=== PATIENT | female | born 1940 | race Caucasian/White ===

== ENCOUNTER 2019-02-08 10:08 | Inpatient (IN) ==
[2019-02-08] MEDS ORDERED: ONDANSETRON ODT 4 MG TABLET PO STA (10:32)
[2019-02-08] MEDS ORDERED: PANTOPRAZOLE 40 MG VIAL IV STA (10:32)
[2019-02-08] MEDS ORDERED: SODIUM CHLORIDE 0.9% 1,000 ML IV STA (10:32)
[2019-02-08 10:38] LABS: Basophils % 0.3 % (0.0-0.8); Eosinophils % 0.3 % (0.00-10.9); Hematocrit 42.7 VOL% (35.7-47.0); Hemoglobin 13.9 GM/DL (12.0-16.0); Immature Granulocytes % 0.5 %; Immature Granulocytes Absolute 0.06 #; Lymphocytes # 1.8 10*3/uL (1.4-4.0); Lymphocytes % 14.7 % (21.3-54.2); Mean Corpuscular HGB Conc 32.6 GM/DL (32-36); Mean Corpuscular Volume 95.7 FL (87-102); Mean Platelet Volume 9.7 FL (9.6-12.0); Neutrophils % 77.2 % (38.7-73.9); Platelet Count 253 T/CUMM (130-400); Red Blood Count 4.46 MC/CUMM (3.8-5.5); Red Cell Distribution Width 11.9 % (9.3-17.3); White Blood Count 11.9 T/CUMM (4-12)
[2019-02-08 10:48] LABS: Apearance,Urine Slightly Hazy (Clear); Bacteria,Urine Many /HPF (Few); Bilirubin,Urine Negative (Negative); Blood, Urine Negative (Negative); Glucose,Urine (UA) Negative (Negative); Ketones,Urine Negative (Negative); Mucus,Urine Occasional /LPF (Occasional); Nitrite,Urine Positive (Negative); Protein,Urine 30 MG/DL; RBC,Urine 2 /HPF (0-4); Squamous Epithelial Cell,Urine Occasional /HPF (0-10); Urine Color Dark Yellow (Yellow); Urine Specific Gravity 1.021 (1.001-1.035); WBC,Urine 32 /HPF (0-6)
[2019-02-08 10:56] LABS: Albumin 2.7 G/DL (3.4-5.0); Bilirubin,Total 0.6 MG/DL (0.2-1.0); Calcium 9.4 MG/DL (8.5-10.1); Osmolality,Calculated 271.1 MOS/KG (273-304); Total Protein 7.6 G/DL (6.4-8.3)
[2019-02-08] MEDS ORDERED: PIPERACILLIN/TAZOBACTAM 3,375 MG in SODIUM CHLORIDE 0.9% 100 ML IV STA (11:16)
[2019-02-08] MEDS ORDERED: PROMETHAZINE 25 MG/1 ML VIAL IM STA (11:16)
[2019-02-08] MEDS ORDERED: HYDROmorphone 2 MG/1 ML VIAL IV STA (11:16)
[2019-02-08] MEDS ORDERED: KETOROLAC 30 MG/1 ML VIAL IV STA (11:17)
[2019-02-08] MEDS ORDERED: KETOROLAC 30 MG/1 ML VIAL ONE (11:18)
[2019-02-08] MEDS ORDERED: ACETAMINOPHEN 325 MG TABLET PO PRN (11:30)
[2019-02-08] MEDS ORDERED: ONDANSETRON 4 MG/2 ML VIAL IV PRN (11:30)
[2019-02-08] MEDS ORDERED: HYDROCORTISONE 25 MG SUPP RECTAL PRN (11:34)
[2019-02-08] MEDS ORDERED: cloNIDine 0.1 MG TABLET PO PRN (11:34)
[2019-02-08] MEDS ORDERED: ALBUTEROL 2.5 MG/3 ML NEB RESP TX PRN (11:34)
[2019-02-08] MEDS ORDERED: diphenhydrAMINE 25 MG/10 ML UDCUP PO PRN (11:34)
[2019-02-08] MEDS: hydrALAZINE 25 MG TABLET PO SCH ×3 (13:24→20:07)
[2019-02-08] MEDS: SODIUM CHLORIDE 0.45% 1,000 ML IV SCH (13:25)
[2019-02-08] MEDS: POLYVINYL ALCOHOL 1.4% OPH SOLN 15 ML BOTTLE BOTH EYES SCH ×2 (16:17→20:07)
[2019-02-08] MEDS: TAMSULOSIN 0.4 MG CAPSULE PO SCH (20:06)
[2019-02-08] MEDS: CALCIUM (CARBONATE)/VITAMIN D 250 MG-125 UNIT TABLET PO SCH (20:06)
[2019-02-08] MEDS: ALPRAZolam 0.5 MG TABLET PO SCH (20:06)
[2019-02-08] MEDS: PROPRANOLOL 10 MG TABLET PO SCH (20:06)
[2019-02-08] MEDS: OLANZapine 5 MG TABLET PO SCH (20:06)
[2019-02-08] MEDS: PANTOPRAZOLE 40 MG TABLET PO SCH (20:06)
[2019-02-08] MEDS: LACTULOSE 20 GM/30 ML UDCUP PO SCH (20:06)
[2019-02-08] MEDS: PIPERACILLIN/TAZOBACTAM 3,375 MG in SODIUM CHLORIDE 0.9% 100 ML IV SCH (20:07)
[2019-02-09] MEDS: PIPERACILLIN/TAZOBACTAM 3,375 MG in SODIUM CHLORIDE 0.9% 100 ML IV SCH ×3 (04:04→21:20)
[2019-02-09 04:54] LABS: Basophils % 0.2 % (0.0-0.8); Eosinophils % 0.2 % (0.00-10.9); Hematocrit 38.3 VOL% (35.7-47.0); Hemoglobin 12.6 GM/DL (12.0-16.0); Immature Granulocytes % 0.5 %; Immature Granulocytes Absolute 0.07 #; Lymphocytes # 1.6 10*3/uL (1.4-4.0); Lymphocytes % 10.8 % (21.3-54.2); Mean Corpuscular HGB Conc 32.9 GM/DL (32-36); Mean Corpuscular Volume 94.8 FL (87-102); Mean Platelet Volume 9.9 FL (9.6-12.0); Monocytes % 10.4 % (1.7-12.7); Neutrophils % 77.9 % (38.7-73.9); Platelet Count 219 T/CUMM (130-400); Red Blood Count 4.04 MC/CUMM (3.8-5.5); Red Cell Distribution Width 11.9 % (9.3-17.3); White Blood Count 14.4 T/CUMM (4-12)
[2019-02-09 05:31] LABS: Albumin 2.3 G/DL (3.4-5.0); Bilirubin,Total 0.9 MG/DL (0.2-1.0); Calcium 8.7 MG/DL (8.5-10.1); Osmolality,Calculated 277.7 MOS/KG (273-304)
[2019-02-09] MEDS ORDERED: INDOCYANINE GREEN 25 MG VIAL IV ONE (06:00)
[2019-02-09] MEDS ORDERED: TISSUE ADHESIVE 1 EACH APPLICATOR TOP ONE ×2 (06:39→09:01)
[2019-02-09] MEDS ORDERED: BUPIVACAINE MPF 0.25% 30 ML VIAL ONE (06:39)
[2019-02-09] MEDS ORDERED: LIDOCAINE 1%/EPI INJ 20 ML VIAL ONE (06:39)
[2019-02-09] MEDS: PANTOPRAZOLE 40 MG TABLET PO SCH ×2 (06:43→21:24)
[2019-02-09] MEDS ORDERED: ALBUTEROL/IPRATROPIUM 3 ML NEB RESP TX ONE (07:03)
[2019-02-09] MEDS ORDERED: SEVOFLURANE 1 UNIT/15 MINUTE INH ONE (09:24)
[2019-02-09] MEDS ORDERED: LIDOCAINE 2% 5 ML VIAL ONE (09:24)
[2019-02-09] MEDS ORDERED: PROPOFOL 200 MG/20 ML VIAL IV ONE (09:24)
[2019-02-09] MEDS ORDERED: PHENYLEPHRINE 10 MG/1 ML VIAL IV ONE (09:25)
[2019-02-09] MEDS ORDERED: GLYCOPYRROLATE 0.4 MG/2 ML VIAL ONE (09:25)
[2019-02-09] MEDS ORDERED: fentaNYL 100 MCG/2 ML VIAL ONE (09:25)
[2019-02-09] MEDS ORDERED: DEXAMETHASONE 4 MG/1 ML VIAL ONE (09:25)
[2019-02-09] MEDS ORDERED: ONDANSETRON 4 MG/2 ML VIAL ONE (09:25)
[2019-02-09] MEDS ORDERED: KETOROLAC 30 MG/1 ML VIAL ONE (09:25)
[2019-02-09] MEDS ORDERED: ROCURONIUM 100 MG/10 ML VIAL IV ONE (09:26)
[2019-02-09] MEDS ORDERED: NEOSTIGMINE 10 MG/10 ML VIAL ONE (09:26)
[2019-02-09] MEDS: POLYVINYL ALCOHOL 1.4% OPH SOLN 15 ML BOTTLE BOTH EYES SCH ×4 (10:11→21:23)
[2019-02-09] MEDS: hydrALAZINE 25 MG TABLET PO SCH ×4 (10:11→21:24)
[2019-02-09] MEDS: busPIRone 5 MG TABLET PO SCH (11:00)
[2019-02-09] MEDS: LISINOPRIL 10 MG TABLET PO SCH (11:00)
[2019-02-09] MEDS: CALCIUM (CARBONATE)/VITAMIN D 250 MG-125 UNIT TABLET PO SCH ×2 (11:01→21:24)
[2019-02-09] MEDS: MAGNESIUM CHLORIDE 64 MG TABLET PO SCH (11:01)
[2019-02-09] MEDS: FLUTICASONE 50 MCG NASAL SPRAY 16 GM BOTTLE BOTH NARES SCH (11:01)
[2019-02-09] MEDS: FLUoxetine 20 MG CAPSULE PO SCH (11:01)
[2019-02-09] MEDS: PROPRANOLOL 10 MG TABLET PO SCH ×2 (11:01→21:24)
[2019-02-09] MEDS: ALPRAZolam 0.5 MG TABLET PO SCH ×2 (11:01→21:23)
[2019-02-09] MEDS: FUROSEMIDE 40 MG TABLET PO SCH (11:01)
[2019-02-09] MEDS: SODIUM CHLORIDE 0.45% 1,000 ML IV SCH (12:57)
[2019-02-09] MEDS: MORPHINE 4 MG/1 ML VIAL IV PRN (17:34)
[2019-02-09] MEDS: OLANZapine 5 MG TABLET PO SCH (21:23)
[2019-02-09] MEDS: TAMSULOSIN 0.4 MG CAPSULE PO SCH (21:24)
[2019-02-09] MEDS: LACTULOSE 20 GM/30 ML UDCUP PO SCH (21:27)
[2019-02-10] MEDS: PIPERACILLIN/TAZOBACTAM 3,375 MG in SODIUM CHLORIDE 0.9% 100 ML IV SCH ×3 (04:36→21:27)
[2019-02-10] MEDS: MORPHINE 4 MG/1 ML VIAL IV PRN ×2 (04:47→10:53)
[2019-02-10 05:26] LABS: Basophils % 0.1 % (0.0-0.8); Hematocrit 38.2 VOL% (35.7-47.0); Hemoglobin 12.6 GM/DL (12.0-16.0); Immature Granulocytes % 0.7 %; Lymphocytes # 1.6 10*3/uL (1.4-4.0); Lymphocytes % 10.6 % (21.3-54.2); Mean Corpuscular Volume 93.9 FL (87-102); Mean Platelet Volume 10.1 FL (9.6-12.0); Monocytes % 7.7 % (1.7-12.7); Neutrophils % 80.9 % (38.7-73.9); Platelet Count 255 T/CUMM (130-400); Red Blood Count 4.07 MC/CUMM (3.8-5.5); Red Cell Distribution Width 12.1 % (9.3-17.3); White Blood Count 14.8 T/CUMM (4-12)
[2019-02-10 05:54] LABS: Albumin 2.1 G/DL (3.4-5.0); Bilirubin,Total 1.1 MG/DL (0.2-1.0); Calcium 9.4 MG/DL (8.5-10.1)
[2019-02-10] MEDS: PANTOPRAZOLE 40 MG TABLET PO SCH ×2 (06:17→21:26)
[2019-02-10] MEDS: SODIUM CHLORIDE 0.45% 1,000 ML IV SCH ×2 (06:18→17:09)
[2019-02-10] MEDS: busPIRone 5 MG TABLET PO SCH (09:15)
[2019-02-10] MEDS: FLUoxetine 20 MG CAPSULE PO SCH (09:15)
[2019-02-10] MEDS: LISINOPRIL 10 MG TABLET PO SCH (09:15)
[2019-02-10] MEDS: PROPRANOLOL 10 MG TABLET PO SCH ×2 (09:16→21:23)
[2019-02-10] MEDS: FUROSEMIDE 40 MG TABLET PO SCH (09:16)
[2019-02-10] MEDS: hydrALAZINE 25 MG TABLET PO SCH ×4 (09:16→21:23)
[2019-02-10] MEDS: CALCIUM (CARBONATE)/VITAMIN D 250 MG-125 UNIT TABLET PO SCH ×2 (09:16→21:25)
[2019-02-10] MEDS: MAGNESIUM CHLORIDE 64 MG TABLET PO SCH (09:17)
[2019-02-10] MEDS: FLUTICASONE 50 MCG NASAL SPRAY 16 GM BOTTLE BOTH NARES SCH (09:17)
[2019-02-10] MEDS: ALPRAZolam 0.5 MG TABLET PO SCH ×2 (09:17→21:28)
[2019-02-10] MEDS: POLYVINYL ALCOHOL 1.4% OPH SOLN 15 ML BOTTLE BOTH EYES SCH ×4 (10:55→21:27)
[2019-02-10] MEDS: OLANZapine 5 MG TABLET PO SCH (21:25)
[2019-02-10] MEDS: LACTULOSE 20 GM/30 ML UDCUP PO SCH (21:26)
[2019-02-10] MEDS: TAMSULOSIN 0.4 MG CAPSULE PO SCH (21:26)
[2019-02-11] MEDS: MORPHINE 4 MG/1 ML VIAL IV PRN (01:57)
[2019-02-11] MEDS: PIPERACILLIN/TAZOBACTAM 3,375 MG in SODIUM CHLORIDE 0.9% 100 ML IV SCH ×3 (04:10→20:15)
[2019-02-11] MEDS: PANTOPRAZOLE 40 MG TABLET PO SCH ×2 (05:56→20:15)
[2019-02-11] MEDS: SODIUM CHLORIDE 0.45% 1,000 ML IV SCH (05:59)
[2019-02-11 06:07] LABS: Basophils % 0.2 % (0.0-0.8); Eosinophils # 0.1 10*3/uL (0.0-0.87); Eosinophils % 1.5 % (0.00-10.9); Hemoglobin 11.3 GM/DL (12.0-16.0); Immature Granulocytes % 1.1 %; Lymphocytes # 1.6 10*3/uL (1.4-4.0); Lymphocytes % 17.4 % (21.3-54.2); Mean Corpuscular HGB Conc 31.4 GM/DL (32-36); Mean Corpuscular Volume 98.1 FL (87-102); Mean Platelet Volume 10.3 FL (9.6-12.0); Monocytes % 9.1 % (1.7-12.7); Neutrophils % 70.7 % (38.7-73.9); Platelet Count 245 T/CUMM (130-400); Red Blood Count 3.67 MC/CUMM (3.8-5.5); Red Cell Distribution Width 12.3 % (9.3-17.3)
[2019-02-11 06:41] LABS: Albumin 1.9 G/DL (3.4-5.0); Bilirubin,Total 0.5 MG/DL (0.2-1.0); Calcium 8.5 MG/DL (8.5-10.1); Osmolality,Calculated 282.4 MOS/KG (273-304)
[2019-02-11] MEDS: LISINOPRIL 10 MG TABLET PO SCH (08:34)
[2019-02-11] MEDS: MAGNESIUM CHLORIDE 64 MG TABLET PO SCH (08:35)
[2019-02-11] MEDS: FLUoxetine 20 MG CAPSULE PO SCH (08:35)
[2019-02-11] MEDS: ALPRAZolam 0.5 MG TABLET PO SCH ×2 (08:35→20:15)
[2019-02-11] MEDS: busPIRone 5 MG TABLET PO SCH (08:35)
[2019-02-11] MEDS: hydrALAZINE 25 MG TABLET PO SCH ×4 (08:35→20:15)
[2019-02-11] MEDS: FUROSEMIDE 40 MG TABLET PO SCH (08:36)
[2019-02-11] MEDS: CALCIUM (CARBONATE)/VITAMIN D 250 MG-125 UNIT TABLET PO SCH ×2 (08:36→20:15)
[2019-02-11] MEDS: PROPRANOLOL 10 MG TABLET PO SCH ×2 (08:36→20:15)
[2019-02-11] MEDS: POLYVINYL ALCOHOL 1.4% OPH SOLN 15 ML BOTTLE BOTH EYES SCH ×4 (08:36→20:22)
[2019-02-11] MEDS: FLUTICASONE 50 MCG NASAL SPRAY 16 GM BOTTLE BOTH NARES SCH (08:37)
[2019-02-11] MEDS ORDERED: POTASSIUM CHLORIDE 20 MEQ TABLET PO ONE (09:13)
[2019-02-11] MEDS: KETOROLAC 15 MG/1 ML VIAL IV SCH ×3 (11:11→22:03)
[2019-02-11] MEDS: TAMSULOSIN 0.4 MG CAPSULE PO SCH (20:15)
[2019-02-11] MEDS: OLANZapine 5 MG TABLET PO SCH (20:15)
[2019-02-11] MEDS: LACTULOSE 20 GM/30 ML UDCUP PO SCH (20:15)
[2019-02-12] MEDS: PIPERACILLIN/TAZOBACTAM 3,375 MG in SODIUM CHLORIDE 0.9% 100 ML IV SCH (04:05)
[2019-02-12] MEDS: KETOROLAC 15 MG/1 ML VIAL IV SCH ×4 (04:05→22:17)
[2019-02-12 05:12] LABS: Basophils % 0.2 % (0.0-0.8); Eosinophils # 0.4 10*3/uL (0.0-0.87); Eosinophils % 4.7 % (0.00-10.9); Hematocrit 35.8 VOL% (35.7-47.0); Hemoglobin 11.2 GM/DL (12.0-16.0); Immature Granulocytes % 0.6 %; Immature Granulocytes Absolute 0.05 #; Lymphocytes # 1.6 10*3/uL (1.4-4.0); Lymphocytes % 18.6 % (21.3-54.2); Mean Corpuscular HGB Conc 31.3 GM/DL (32-36); Mean Corpuscular Volume 97.3 FL (87-102); Monocytes % 8.8 % (1.7-12.7); Neutrophils % 67.1 % (38.7-73.9); Platelet Count 259 T/CUMM (130-400); Red Blood Count 3.68 MC/CUMM (3.8-5.5); Red Cell Distribution Width 12.3 % (9.3-17.3); White Blood Count 8.5 T/CUMM (4-12)
[2019-02-12] MEDS: PANTOPRAZOLE 40 MG TABLET PO SCH ×2 (05:33→20:02)
[2019-02-12 05:35] LABS: Calcium 8.8 MG/DL (8.5-10.1); Osmolality,Calculated 285.1 MOS/KG (273-304)
[2019-02-12] MEDS: CALCIUM (CARBONATE)/VITAMIN D 250 MG-125 UNIT TABLET PO SCH ×2 (08:52→20:02)
[2019-02-12] MEDS: PROPRANOLOL 10 MG TABLET PO SCH ×2 (08:52→20:02)
[2019-02-12] MEDS: hydrALAZINE 25 MG TABLET PO SCH ×4 (08:52→20:02)
[2019-02-12] MEDS: MAGNESIUM CHLORIDE 64 MG TABLET PO SCH (08:53)
[2019-02-12] MEDS: ALPRAZolam 0.5 MG TABLET PO SCH ×2 (08:53→20:02)
[2019-02-12] MEDS: FUROSEMIDE 40 MG TABLET PO SCH (08:53)
[2019-02-12] MEDS: busPIRone 5 MG TABLET PO SCH (08:53)
[2019-02-12] MEDS: FLUoxetine 20 MG CAPSULE PO SCH (08:53)
[2019-02-12] MEDS: LISINOPRIL 10 MG TABLET PO SCH (08:53)
[2019-02-12] MEDS: ERGOCALCIFEROL 50,000 UNIT CAPSULE PO SCH (08:53)
[2019-02-12] MEDS: POLYVINYL ALCOHOL 1.4% OPH SOLN 15 ML BOTTLE BOTH EYES SCH ×4 (08:54→20:03)
[2019-02-12] MEDS: FLUTICASONE 50 MCG NASAL SPRAY 16 GM BOTTLE BOTH NARES SCH (08:54)
[2019-02-12] MEDS: SULFAMETHOX/TRIMETHOPRIM 800-160 MG TABLET PO SCH ×2 (11:19→20:02)
[2019-02-12] MEDS: POLYETHYLENE GLYCOL POWDER 17 GM PACK PO SCH (11:19)
[2019-02-12] MEDS ORDERED: BISACODYL 5 MG TABLET PO ONE (13:56)
[2019-02-12] MEDS: OLANZapine 5 MG TABLET PO SCH (20:02)
[2019-02-12] MEDS: TAMSULOSIN 0.4 MG CAPSULE PO SCH (20:02)
[2019-02-12] MEDS: LACTULOSE 20 GM/30 ML UDCUP PO SCH (20:03)
[2019-02-13] MEDS: KETOROLAC 15 MG/1 ML VIAL IV SCH ×4 (06:24→23:20)
[2019-02-13] MEDS: PANTOPRAZOLE 40 MG TABLET PO SCH ×2 (06:24→20:52)
[2019-02-13] MEDS: FLUTICASONE 50 MCG NASAL SPRAY 16 GM BOTTLE BOTH NARES SCH (08:55)
[2019-02-13] MEDS: POLYVINYL ALCOHOL 1.4% OPH SOLN 15 ML BOTTLE BOTH EYES SCH ×4 (08:55→20:50)
[2019-02-13] MEDS: busPIRone 5 MG TABLET PO SCH (09:46)
[2019-02-13] MEDS: PROPRANOLOL 10 MG TABLET PO SCH ×2 (09:53→20:52)
[2019-02-13] MEDS: LISINOPRIL 10 MG TABLET PO SCH (09:54)
[2019-02-13] MEDS: CALCIUM (CARBONATE)/VITAMIN D 250 MG-125 UNIT TABLET PO SCH ×2 (09:54→20:52)
[2019-02-13] MEDS: MAGNESIUM CHLORIDE 64 MG TABLET PO SCH (09:54)
[2019-02-13] MEDS: FLUoxetine 20 MG CAPSULE PO SCH (09:54)
[2019-02-13] MEDS: FUROSEMIDE 40 MG TABLET PO SCH (09:54)
[2019-02-13] MEDS: ALPRAZolam 0.5 MG TABLET PO SCH ×2 (09:54→20:52)
[2019-02-13] MEDS: hydrALAZINE 25 MG TABLET PO SCH ×4 (09:55→20:50)
[2019-02-13] MEDS: SULFAMETHOX/TRIMETHOPRIM 800-160 MG TABLET PO SCH (09:55)
[2019-02-13] MEDS: POLYETHYLENE GLYCOL POWDER 17 GM PACK PO SCH (09:55)
[2019-02-13] MEDS: OLANZapine 5 MG TABLET PO SCH (20:52)
[2019-02-13] MEDS: TAMSULOSIN 0.4 MG CAPSULE PO SCH (20:52)
[2019-02-13] MEDS: LACTULOSE 20 GM/30 ML UDCUP PO SCH (20:53)
[2019-02-14 05:39] LABS: PT Patient Result 10.5 SECS (9.6-12.2)
[2019-02-14 05:40] LABS: Basophils % 0.2 % (0.0-0.8); Eosinophils # 0.4 10*3/uL (0.0-0.87); Eosinophils % 4.1 % (0.00-10.9); Hematocrit 35.6 VOL% (35.7-47.0); Hemoglobin 11.3 GM/DL (12.0-16.0); Immature Granulocytes % 0.6 %; Immature Granulocytes Absolute 0.06 #; Lymphocytes # 1.3 10*3/uL (1.4-4.0); Lymphocytes % 13.1 % (21.3-54.2); Mean Corpuscular HGB Conc 31.7 GM/DL (32-36); Mean Corpuscular Volume 96.5 FL (87-102); Mean Platelet Volume 10.1 FL (9.6-12.0); Monocytes % 7.3 % (1.7-12.7); Neutrophils % 74.7 % (38.7-73.9); Platelet Count 306 T/CUMM (130-400); Red Blood Count 3.69 MC/CUMM (3.8-5.5); Red Cell Distribution Width 12.3 % (9.3-17.3); White Blood Count 9.9 T/CUMM (4-12)
[2019-02-14 05:55] LABS: Osmolality,Calculated 288.7 MOS/KG (273-304)
[2019-02-14] MEDS: KETOROLAC 15 MG/1 ML VIAL IV SCH ×4 (06:03→23:56)
[2019-02-14] MEDS ORDERED: INDOMETHACIN SUPP 50 MG SUPP RECTAL ONE (08:00)
[2019-02-14] MEDS ORDERED: LACTATED RINGERS 1,000 ML IV SCH (08:00)
[2019-02-14] MEDS ORDERED: cefTRIAXone 1,000 MG in SYRINGE 1 EACH IV SCH (09:00)
[2019-02-14] MEDS: PANTOPRAZOLE 40 MG TABLET PO SCH ×2 (09:25→21:02)
[2019-02-14] MEDS: busPIRone 5 MG TABLET PO SCH ×2 (09:25→10:14)
[2019-02-14] MEDS: FUROSEMIDE 40 MG TABLET PO SCH ×2 (09:26→10:14)
[2019-02-14] MEDS: CALCIUM (CARBONATE)/VITAMIN D 250 MG-125 UNIT TABLET PO SCH ×3 (09:26→21:02)
[2019-02-14] MEDS: MAGNESIUM CHLORIDE 64 MG TABLET PO SCH ×2 (09:26→10:14)
[2019-02-14] MEDS: hydrALAZINE 25 MG TABLET PO SCH ×5 (09:26→21:02)
[2019-02-14] MEDS: FLUoxetine 20 MG CAPSULE PO SCH ×2 (09:26→10:14)
[2019-02-14] MEDS: POLYETHYLENE GLYCOL POWDER 17 GM PACK PO SCH ×2 (09:27→10:21)
[2019-02-14] MEDS ORDERED: FUROSEMIDE 40 MG/4 ML VIAL IV ONE (10:04)
[2019-02-14] MEDS: POLYVINYL ALCOHOL 1.4% OPH SOLN 15 ML BOTTLE BOTH EYES SCH ×4 (10:13→21:08)
[2019-02-14] MEDS: LISINOPRIL 10 MG TABLET PO SCH (10:14)
[2019-02-14] MEDS: PROPRANOLOL 10 MG TABLET PO SCH ×2 (10:14→21:02)
[2019-02-14] MEDS: ALPRAZolam 0.5 MG TABLET PO SCH ×2 (10:15→21:02)
[2019-02-14] MEDS: FLUTICASONE 50 MCG NASAL SPRAY 16 GM BOTTLE BOTH NARES SCH (10:20)
[2019-02-14] MEDS: VANCOMYCIN INJ 1,500 MG in SODIUM CHLORIDE 0.9% 500 ML IV SCH (14:40)
[2019-02-14] MEDS: OLANZapine 5 MG TABLET PO SCH (21:02)
[2019-02-14] MEDS: TAMSULOSIN 0.4 MG CAPSULE PO SCH (21:02)
[2019-02-14] MEDS: LACTULOSE 20 GM/30 ML UDCUP PO SCH (21:03)
[2019-02-15] MEDS: VANCOMYCIN INJ 1,500 MG in SODIUM CHLORIDE 0.9% 500 ML IV SCH ×2 (04:34→15:18)
[2019-02-15 06:20] LABS: Basophils % 0.2 % (0.0-0.8); Eosinophils # 0.6 10*3/uL (0.0-0.87); Eosinophils % 5.3 % (0.00-10.9); Hematocrit 35.1 VOL% (35.7-47.0); Hemoglobin 11.1 GM/DL (12.0-16.0); Immature Granulocytes % 0.9 %; Lymphocytes # 1.4 10*3/uL (1.4-4.0); Lymphocytes % 12.6 % (21.3-54.2); Mean Corpuscular HGB Conc 31.6 GM/DL (32-36); Mean Corpuscular Volume 97.2 FL (87-102); Mean Platelet Volume 9.6 FL (9.6-12.0); Monocytes % 6.7 % (1.7-12.7); Neutrophils % 74.3 % (38.7-73.9); Platelet Count 322 T/CUMM (130-400); Red Blood Count 3.61 MC/CUMM (3.8-5.5); Red Cell Distribution Width 12.1 % (9.3-17.3); White Blood Count 11.1 T/CUMM (4-12)
[2019-02-15] MEDS: KETOROLAC 15 MG/1 ML VIAL IV SCH ×4 (06:41→22:30)
[2019-02-15 06:43] LABS: Calcium 9.2 MG/DL (8.5-10.1); Osmolality,Calculated 285.1 MOS/KG (273-304)
[2019-02-15] MEDS: PANTOPRAZOLE 40 MG TABLET PO SCH ×2 (09:18→22:30)
[2019-02-15] MEDS: FUROSEMIDE 40 MG/4 ML VIAL IV SCH (09:34)
[2019-02-15] MEDS: POLYETHYLENE GLYCOL POWDER 17 GM PACK PO SCH (09:35)
[2019-02-15] MEDS: FLUoxetine 20 MG CAPSULE PO SCH (09:36)
[2019-02-15] MEDS: hydrALAZINE 25 MG TABLET PO SCH ×4 (09:36→22:30)
[2019-02-15] MEDS: LISINOPRIL 10 MG TABLET PO SCH (09:37)
[2019-02-15] MEDS: PROPRANOLOL 10 MG TABLET PO SCH ×2 (09:37→22:29)
[2019-02-15] MEDS: CALCIUM (CARBONATE)/VITAMIN D 250 MG-125 UNIT TABLET PO SCH ×2 (09:37→22:30)
[2019-02-15] MEDS: ALPRAZolam 0.5 MG TABLET PO SCH ×2 (09:37→22:29)
[2019-02-15] MEDS: busPIRone 5 MG TABLET PO SCH (09:37)
[2019-02-15] MEDS: MAGNESIUM CHLORIDE 64 MG TABLET PO SCH (09:37)
[2019-02-15] MEDS: FLUTICASONE 50 MCG NASAL SPRAY 16 GM BOTTLE BOTH NARES SCH (09:37)
[2019-02-15] MEDS: PIPERACILLIN/TAZOBACTAM 3,375 MG in SODIUM CHLORIDE 0.9% 100 ML IV SCH ×2 (09:41→17:38)
[2019-02-15] MEDS: POLYVINYL ALCOHOL 1.4% OPH SOLN 15 ML BOTTLE BOTH EYES SCH ×4 (09:41→22:31)
[2019-02-15] MEDS ORDERED: guaiFENesin/DM ER 600-30 MG TABLET PO PRN (12:50)
[2019-02-15] MEDS ORDERED: LISINOPRIL 10 MG TABLET PO ONE (13:00)
[2019-02-15] MEDS: LACTULOSE 20 GM/30 ML UDCUP PO SCH (22:27)
[2019-02-15] MEDS: OLANZapine 5 MG TABLET PO SCH (22:29)
[2019-02-15] MEDS: TAMSULOSIN 0.4 MG CAPSULE PO SCH (22:29)
[2019-02-16] MEDS: PIPERACILLIN/TAZOBACTAM 3,375 MG in SODIUM CHLORIDE 0.9% 100 ML IV SCH ×3 (02:00→18:02)
[2019-02-16] MEDS: VANCOMYCIN INJ 1,500 MG in SODIUM CHLORIDE 0.9% 500 ML IV SCH ×2 (03:51→15:23)
[2019-02-16 05:39] LABS: Basophils % 0.2 % (0.0-0.8); Eosinophils # 0.6 10*3/uL (0.0-0.87); Eosinophils % 6.3 % (0.00-10.9); Hematocrit 33.5 VOL% (35.7-47.0); Hemoglobin 10.6 GM/DL (12.0-16.0); Immature Granulocytes % 0.7 %; Immature Granulocytes Absolute 0.06 #; Lymphocytes # 1.7 10*3/uL (1.4-4.0); Lymphocytes % 19.1 % (21.3-54.2); Mean Corpuscular HGB Conc 31.6 GM/DL (32-36); Mean Corpuscular Volume 97.1 FL (87-102); Mean Platelet Volume 9.9 FL (9.6-12.0); Monocytes % 8.4 % (1.7-12.7); Neutrophils % 65.3 % (38.7-73.9); Platelet Count 324 T/CUMM (130-400); Red Blood Count 3.45 MC/CUMM (3.8-5.5); Red Cell Distribution Width 12.2 % (9.3-17.3); White Blood Count 9.1 T/CUMM (4-12)
[2019-02-16 05:51] LABS: Albumin 1.9 G/DL (3.4-5.0); Bilirubin,Total 0.6 MG/DL (0.2-1.0); Calcium 8.6 MG/DL (8.5-10.1); Osmolality,Calculated 292.4 MOS/KG (273-304); Total Protein 6.1 G/DL (6.4-8.3)
[2019-02-16] MEDS: KETOROLAC 15 MG/1 ML VIAL IV SCH (06:48)
[2019-02-16] MEDS: PANTOPRAZOLE 40 MG TABLET PO SCH ×2 (06:48→22:02)
[2019-02-16] MEDS: MAGNESIUM CHLORIDE 64 MG TABLET PO SCH (09:10)
[2019-02-16] MEDS: hydrALAZINE 25 MG TABLET PO SCH ×4 (09:10→22:03)
[2019-02-16] MEDS: CALCIUM (CARBONATE)/VITAMIN D 250 MG-125 UNIT TABLET PO SCH ×2 (09:10→22:02)
[2019-02-16] MEDS: LISINOPRIL 10 MG TABLET PO SCH (09:10)
[2019-02-16] MEDS: busPIRone 5 MG TABLET PO SCH (09:10)
[2019-02-16] MEDS: FLUoxetine 20 MG CAPSULE PO SCH (09:10)
[2019-02-16] MEDS: PROPRANOLOL 10 MG TABLET PO SCH ×2 (09:11→22:01)
[2019-02-16] MEDS: FUROSEMIDE 40 MG/4 ML VIAL IV SCH ×2 (09:13→17:54)
[2019-02-16] MEDS: FLUTICASONE 50 MCG NASAL SPRAY 16 GM BOTTLE BOTH NARES SCH (09:16)
[2019-02-16] MEDS: POLYVINYL ALCOHOL 1.4% OPH SOLN 15 ML BOTTLE BOTH EYES SCH ×4 (09:16→22:04)
[2019-02-16] MEDS: POLYETHYLENE GLYCOL POWDER 17 GM PACK PO SCH (09:17)
[2019-02-16] MEDS: POTASSIUM CHLORIDE 20 MEQ TABLET PO PRN ×3 (11:43→22:02)
[2019-02-16] MEDS: ALPRAZolam 0.5 MG TABLET PO SCH ×2 (12:52→22:01)
[2019-02-16] MEDS: LACTULOSE 20 GM/30 ML UDCUP PO SCH (22:01)
[2019-02-16] MEDS: OLANZapine 5 MG TABLET PO SCH (22:01)
[2019-02-16] MEDS: TAMSULOSIN 0.4 MG CAPSULE PO SCH (22:02)
[2019-02-17] MEDS: ALBUTEROL 2.5 MG/3 ML NEB RESP TX SCH ×4 (00:26→19:18)
[2019-02-17] MEDS: PIPERACILLIN/TAZOBACTAM 3,375 MG in SODIUM CHLORIDE 0.9% 100 ML IV SCH ×3 (02:37→21:00)
[2019-02-17] MEDS: PANTOPRAZOLE 40 MG TABLET PO SCH ×2 (05:20→20:59)
[2019-02-17 05:26] LABS: Basophils % 0.3 % (0.0-0.8); Eosinophils # 0.4 10*3/uL (0.0-0.87); Eosinophils % 3.6 % (0.00-10.9); Hematocrit 38.9 VOL% (35.7-47.0); Hemoglobin 12.3 GM/DL (12.0-16.0); Immature Granulocytes % 0.8 %; Immature Granulocytes Absolute 0.09 #; Lymphocytes # 1.9 10*3/uL (1.4-4.0); Lymphocytes % 17.2 % (21.3-54.2); Mean Corpuscular HGB Conc 31.6 GM/DL (32-36); Mean Corpuscular Volume 96.5 FL (87-102); Mean Platelet Volume 9.7 FL (9.6-12.0); Monocytes % 8.4 % (1.7-12.7); Neutrophils % 69.7 % (38.7-73.9); Platelet Count 372 T/CUMM (130-400); Red Blood Count 4.03 MC/CUMM (3.8-5.5); White Blood Count 11.2 T/CUMM (4-12)
[2019-02-17 05:41] LABS: PT Patient Result 10.7 SECS (9.6-12.2)
[2019-02-17 06:14] LABS: Calcium 9.3 MG/DL (8.5-10.1); Osmolality,Calculated 283.1 MOS/KG (273-304)
[2019-02-17 06:23] LABS: Albumin 2.1 G/DL (3.4-5.0); Bilirubin,Total 0.6 MG/DL (0.2-1.0); Calcium 9.4 MG/DL (8.5-10.1); Total Protein 7.1 G/DL (6.4-8.3)
[2019-02-17] MEDS ORDERED: MAGNESIUM SULF RIDER 2 GM in PREMIX 1 EACH IV PRN (07:51)
[2019-02-17] MEDS ORDERED: MAGNESIUM SULF RIDER 4 GM in PREMIX 1 EACH IV PRN (07:51)
[2019-02-17] MEDS ORDERED: INDOMETHACIN SUPP 50 MG SUPP RECTAL ONE (08:00)
[2019-02-17] MEDS: FUROSEMIDE 40 MG/4 ML VIAL IV SCH ×2 (08:26→19:06)
[2019-02-17] MEDS ORDERED: fentaNYL 100 MCG/2 ML VIAL ONE ×2 (08:28→09:30)
[2019-02-17] MEDS: FLUTICASONE 50 MCG NASAL SPRAY 16 GM BOTTLE BOTH NARES SCH (08:30)
[2019-02-17] MEDS: busPIRone 5 MG TABLET PO SCH (08:30)
[2019-02-17] MEDS: POLYVINYL ALCOHOL 1.4% OPH SOLN 15 ML BOTTLE BOTH EYES SCH ×4 (08:30→21:01)
[2019-02-17] MEDS: PROPRANOLOL 10 MG TABLET PO SCH ×2 (08:31→20:59)
[2019-02-17] MEDS: MAGNESIUM CHLORIDE 64 MG TABLET PO SCH (08:31)
[2019-02-17] MEDS: LISINOPRIL 10 MG TABLET PO SCH (08:31)
[2019-02-17] MEDS: FLUoxetine 20 MG CAPSULE PO SCH (08:31)
[2019-02-17] MEDS: CALCIUM (CARBONATE)/VITAMIN D 250 MG-125 UNIT TABLET PO SCH ×2 (08:31→21:00)
[2019-02-17] MEDS: ALPRAZolam 0.5 MG TABLET PO SCH ×2 (08:32→20:59)
[2019-02-17] MEDS: POLYETHYLENE GLYCOL POWDER 17 GM PACK PO SCH (08:32)
[2019-02-17] MEDS: hydrALAZINE 25 MG TABLET PO SCH ×4 (08:32→20:59)
[2019-02-17] MEDS ORDERED: FAMOTIDINE 20 MG/2 ML VIAL IV ONE (08:34)
[2019-02-17] MEDS ORDERED: MIDAZOLAM 2 MG/2 ML VIAL ONE (09:30)
[2019-02-17] MEDS ORDERED: SUCCINYLCHOLINE 200 MG/10 ML VIAL ONE (09:30)
[2019-02-17] MEDS ORDERED: DEXAMETHASONE 4 MG/1 ML VIAL ONE (09:30)
[2019-02-17] MEDS ORDERED: LIDOCAINE 2% 5 ML VIAL ONE (09:30)
[2019-02-17] MEDS ORDERED: PHENYLEPHRINE 1 MG/10 ML SYRINGE IV ONE (09:30)
[2019-02-17] MEDS ORDERED: ROCURONIUM 100 MG/10 ML VIAL IV ONE (09:30)
[2019-02-17] MEDS ORDERED: ONDANSETRON 4 MG/2 ML VIAL ONE (09:30)
[2019-02-17] MEDS ORDERED: PROPOFOL 200 MG/20 ML VIAL IV ONE (09:30)
[2019-02-17] MEDS ORDERED: SEVOFLURANE 1 UNIT/15 MINUTE INH ONE (10:06)
[2019-02-17] MEDS: LACTATED RINGERS 1,000 ML IV SCH (11:23)
[2019-02-17] MEDS: LACTULOSE 20 GM/30 ML UDCUP PO SCH (20:59)
[2019-02-17] MEDS: TAMSULOSIN 0.4 MG CAPSULE PO SCH (20:59)
[2019-02-17] MEDS: OLANZapine 5 MG TABLET PO SCH (21:00)
[2019-02-18] MEDS: ALBUTEROL 2.5 MG/3 ML NEB RESP TX SCH ×4 (01:18→19:40)
[2019-02-18] MEDS: PIPERACILLIN/TAZOBACTAM 3,375 MG in SODIUM CHLORIDE 0.9% 100 ML IV SCH ×3 (04:41→20:44)
[2019-02-18] MEDS: PANTOPRAZOLE 40 MG TABLET PO SCH ×2 (05:33→20:45)
[2019-02-18 06:21] LABS: Basophils % 0.4 % (0.0-0.8); Eosinophils # 0.1 10*3/uL (0.0-0.87); Eosinophils % 1.1 % (0.00-10.9); Hematocrit 38.5 VOL% (35.7-47.0); Hemoglobin 12.1 GM/DL (12.0-16.0); Immature Granulocytes % 0.6 %; Immature Granulocytes Absolute 0.06 #; Lymphocytes # 1.8 10*3/uL (1.4-4.0); Lymphocytes % 16.6 % (21.3-54.2); Mean Corpuscular HGB Conc 31.4 GM/DL (32-36); Mean Corpuscular Volume 97.5 FL (87-102); Mean Platelet Volume 9.6 FL (9.6-12.0); Monocytes % 8.5 % (1.7-12.7); Neutrophils % 72.8 % (38.7-73.9); Platelet Count 368 T/CUMM (130-400); Red Blood Count 3.95 MC/CUMM (3.8-5.5); Red Cell Distribution Width 12.1 % (9.3-17.3); White Blood Count 10.6 T/CUMM (4-12)
[2019-02-18 06:47] LABS: Albumin 2.2 G/DL (3.4-5.0); Bilirubin,Total 0.6 MG/DL (0.2-1.0); Calcium 9.9 MG/DL (8.5-10.1); Osmolality,Calculated 282.3 MOS/KG (273-304)
[2019-02-18 06:52] LABS: Albumin 2.3 G/DL (3.4-5.0); Osmolality,Calculated 282.3 MOS/KG (273-304)
[2019-02-18] MEDS ORDERED: FUROSEMIDE 40 MG/4 ML VIAL IV SCH (09:00)
[2019-02-18] MEDS: LISINOPRIL 10 MG TABLET PO SCH (09:02)
[2019-02-18] MEDS: FLUCONAZOLE 100 MG TABLET PO SCH (09:03)
[2019-02-18] MEDS: FLUoxetine 20 MG CAPSULE PO SCH (09:03)
[2019-02-18] MEDS: busPIRone 5 MG TABLET PO SCH (09:03)
[2019-02-18] MEDS: ALPRAZolam 0.5 MG TABLET PO SCH ×2 (09:03→20:44)
[2019-02-18] MEDS: hydrALAZINE 25 MG TABLET PO SCH ×4 (09:03→21:00)
[2019-02-18] MEDS: PROPRANOLOL 10 MG TABLET PO SCH ×2 (09:04→21:00)
[2019-02-18] MEDS: CALCIUM (CARBONATE)/VITAMIN D 250 MG-125 UNIT TABLET PO SCH ×2 (09:04→20:44)
[2019-02-18] MEDS: LACTATED RINGERS 1,000 ML IV SCH (09:04)
[2019-02-18] MEDS: MAGNESIUM CHLORIDE 64 MG TABLET PO SCH (09:04)
[2019-02-18] MEDS: FLUTICASONE 50 MCG NASAL SPRAY 16 GM BOTTLE BOTH NARES SCH (09:05)
[2019-02-18] MEDS ORDERED: LOPERAMIDE 2 MG CAPSULE PO PRN (09:17)
[2019-02-18] MEDS ORDERED: MORPHINE 4 MG/1 ML VIAL IV PRN (09:18)
[2019-02-18] MEDS: POLYVINYL ALCOHOL 1.4% OPH SOLN 15 ML BOTTLE BOTH EYES SCH ×4 (09:54→20:46)
[2019-02-18] MEDS: POLYETHYLENE GLYCOL POWDER 17 GM PACK PO SCH (12:27)
[2019-02-18] MEDS: NYSTATIN 500,000 UNIT/5 ML UDCUP SWISH/SWAL SCH ×3 (14:42→20:45)
[2019-02-18] MEDS: MULTIVITAMIN (BEROCCA) TABLET PO SCH (14:42)
[2019-02-18] MEDS: TAMSULOSIN 0.4 MG CAPSULE PO SCH (20:45)
[2019-02-18] MEDS: OLANZapine 5 MG TABLET PO SCH (20:45)
[2019-02-19] MEDS: ALBUTEROL 2.5 MG/3 ML NEB RESP TX SCH ×4 (00:04→19:35)
[2019-02-19] MEDS: PIPERACILLIN/TAZOBACTAM 3,375 MG in SODIUM CHLORIDE 0.9% 100 ML IV SCH ×3 (04:33→21:56)
[2019-02-19] MEDS: PANTOPRAZOLE 40 MG TABLET PO SCH ×2 (05:30→21:55)
[2019-02-19] MEDS: FUROSEMIDE 40 MG/4 ML VIAL IV SCH ×2 (10:04→17:05)
[2019-02-19] MEDS: NYSTATIN 500,000 UNIT/5 ML UDCUP SWISH/SWAL SCH ×4 (10:04→21:55)
[2019-02-19] MEDS: FLUCONAZOLE 100 MG TABLET PO SCH (10:06)
[2019-02-19] MEDS: MAGNESIUM CHLORIDE 64 MG TABLET PO SCH (10:06)
[2019-02-19] MEDS: hydrALAZINE 25 MG TABLET PO SCH ×5 (10:06→22:04)
[2019-02-19] MEDS: FLUoxetine 20 MG CAPSULE PO SCH (10:06)
[2019-02-19] MEDS: ERGOCALCIFEROL 50,000 UNIT CAPSULE PO SCH (10:07)
[2019-02-19] MEDS: busPIRone 5 MG TABLET PO SCH (10:07)
[2019-02-19] MEDS: LISINOPRIL 10 MG TABLET PO SCH (10:08)
[2019-02-19] MEDS: CALCIUM (CARBONATE)/VITAMIN D 250 MG-125 UNIT TABLET PO SCH ×2 (10:08→21:55)
[2019-02-19] MEDS: PROPRANOLOL 10 MG TABLET PO SCH ×2 (10:08→22:02)
[2019-02-19] MEDS: MULTIVITAMIN (BEROCCA) TABLET PO SCH (10:08)
[2019-02-19] MEDS: ALPRAZolam 0.5 MG TABLET PO SCH ×2 (10:08→21:55)
[2019-02-19] MEDS: FLUTICASONE 50 MCG NASAL SPRAY 16 GM BOTTLE BOTH NARES SCH (10:09)
[2019-02-19] MEDS: POLYVINYL ALCOHOL 1.4% OPH SOLN 15 ML BOTTLE BOTH EYES SCH ×4 (10:09→22:03)
[2019-02-19] MEDS: OLANZapine 5 MG TABLET PO SCH (21:55)
[2019-02-19] MEDS: TAMSULOSIN 0.4 MG CAPSULE PO SCH (21:55)
[2019-02-20] MEDS: ALBUTEROL 2.5 MG/3 ML NEB RESP TX SCH ×3 (01:00→12:50)
[2019-02-20] MEDS: PIPERACILLIN/TAZOBACTAM 3,375 MG in SODIUM CHLORIDE 0.9% 100 ML IV SCH ×2 (04:34→12:36)
[2019-02-20] MEDS: PANTOPRAZOLE 40 MG TABLET PO SCH (05:35)
[2019-02-20 06:01] LABS: Calcium 8.7 MG/DL (8.5-10.1); Osmolality,Calculated 283.1 MOS/KG (273-304)
[2019-02-20] MEDS: POTASSIUM CHLORIDE 20 MEQ/15 ML UDCUP PER TUBE PRN ×2 (06:34→09:51)
[2019-02-20] MEDS ORDERED: POTASSIUM CHLORIDE 20 MEQ TABLET PO ONE (07:51)
[2019-02-20] MEDS: FUROSEMIDE 40 MG/4 ML VIAL IV SCH (09:40)
[2019-02-20] MEDS: NYSTATIN 500,000 UNIT/5 ML UDCUP SWISH/SWAL SCH ×2 (09:40→12:37)
[2019-02-20] MEDS: CALCIUM (CARBONATE)/VITAMIN D 250 MG-125 UNIT TABLET PO SCH (09:41)
[2019-02-20] MEDS: MAGNESIUM CHLORIDE 64 MG TABLET PO SCH (09:41)
[2019-02-20] MEDS: FLUoxetine 20 MG CAPSULE PO SCH (09:41)
[2019-02-20] MEDS: PROPRANOLOL 10 MG TABLET PO SCH (09:42)
[2019-02-20] MEDS: FLUCONAZOLE 100 MG TABLET PO SCH (09:42)
[2019-02-20] MEDS: busPIRone 5 MG TABLET PO SCH (09:42)
[2019-02-20] MEDS: MULTIVITAMIN (BEROCCA) TABLET PO SCH (09:42)
[2019-02-20] MEDS: ALPRAZolam 0.5 MG TABLET PO SCH (09:43)
[2019-02-20] MEDS: POLYVINYL ALCOHOL 1.4% OPH SOLN 15 ML BOTTLE BOTH EYES SCH ×2 (09:43→12:36)
[2019-02-20] MEDS: hydrALAZINE 25 MG TABLET PO SCH ×2 (09:43→12:36)
[2019-02-20] MEDS: FLUTICASONE 50 MCG NASAL SPRAY 16 GM BOTTLE BOTH NARES SCH (09:43)
[2019-02-20] MEDS: LISINOPRIL 10 MG TABLET PO SCH (09:44)
[2019-02-20 10:27] VITALS: BP 119/69
== END 2019-02-20 14:53 | DRG 418 ==
LOC: EDUNIT# → EDBD → N.ED 10:08 → N.EDINP 10:08 → N.5E 12:41 → SUATTDRO 02-09 11:29
PROVIDERS: ADMIT Internal Medicine; ATTEND Hospitalist

== ENCOUNTER 2019-03-08 15:00 | Inpatient (IN) ==
[2019-03-08] MEDS ORDERED: BISACODYL 5 MG TABLET PO PRN (15:05)
[2019-03-08] MEDS ORDERED: ONDANSETRON 4 MG/2 ML VIAL IV PRN (15:05)
[2019-03-08] MEDS ORDERED: KETOROLAC 15 MG/1 ML VIAL IV PRN (15:05)
[2019-03-08] MEDS ORDERED: ACETAMINOPHEN 325 MG TABLET PO PRN (15:05)
[2019-03-08] MEDS ORDERED: ALBUTEROL/IPRATROPIUM 3 ML NEB RESP TX PRN (15:05)
[2019-03-08] MEDS ORDERED: HYDROmorphone 2 MG/1 ML VIAL IV PRN (15:05)
[2019-03-08] MEDS ORDERED: hydrALAZINE 20 MG/1 ML VIAL IV PRN (15:12)
[2019-03-08 17:01] LABS: Basophils # 0.1 10*3/uL (0.0-0.2); Basophils % 0.5 % (0.0-0.8); Eosinophils # 0.3 10*3/uL (0.0-0.87); Hematocrit 45.2 VOL% (35.7-47.0); Hemoglobin 14.4 GM/DL (12.0-16.0); Immature Granulocytes % 0.6 %; Immature Granulocytes Absolute 0.06 #; Lymphocytes # 2.3 10*3/uL (1.4-4.0); Lymphocytes % 22.1 % (21.3-54.2); Mean Corpuscular HGB Conc 31.9 GM/DL (32-36); Mean Platelet Volume 9.5 FL (9.6-12.0); Monocytes % 9.1 % (1.7-12.7); Neutrophils % 64.7 % (38.7-73.9); Platelet Count 399 T/CUMM (130-400); Red Blood Count 4.81 MC/CUMM (3.8-5.5); Red Cell Distribution Width 12.9 % (9.3-17.3); White Blood Count 10.5 T/CUMM (4-12)
[2019-03-08 17:20] LABS: Albumin 2.9 G/DL (3.4-5.0); Bilirubin,Total 0.4 MG/DL (0.2-1.0); Calcium 9.9 MG/DL (8.5-10.1); Osmolality,Calculated 267.4 MOS/KG (273-304)
[2019-03-08 18:14] LABS: Eosinophils 3 % (0-10); Lymphocytes 17 % (20-55); Segmented Neutrophils 67 % (50-85)
[2019-03-08 18:15] LABS: Anisocytosis Slight; Hypochromasia Slight; Platelet Estimate Adequate; Stomatocytes Slight; Total Cells Counted 100
[2019-03-08] MEDS: LACTATED RINGERS 1,000 ML IV SCH (18:28)
[2019-03-08] MEDS: PIPERACILLIN/TAZOBACTAM 3,375 MG in SODIUM CHLORIDE 0.9% 100 ML IV SCH (19:16)
[2019-03-09] MEDS: PIPERACILLIN/TAZOBACTAM 3,375 MG in SODIUM CHLORIDE 0.9% 100 ML IV SCH ×3 (00:53→16:27)
[2019-03-09 04:00] LABS: Apearance,Urine Slightly Hazy (Clear); Bacteria,Urine Moderate /HPF (Few); Bilirubin,Urine Negative (Negative); Blood, Urine Negative (Negative); Glucose,Urine (UA) Negative (Negative); Hyaline Casts,Urine 1 /LPF (0-3); Ketones,Urine Negative (Negative); Mucus,Urine Occasional /LPF (Occasional); Nitrite,Urine Negative (Negative); Protein,Urine Negative; RBC,Urine 7 /HPF (0-4); Squamous Epithelial Cell,Urine Occasional /HPF (0-10); Transitional Epi Cells,Urine Occasional /HPF (<1); Urine Color Yellow (Yellow); Urine Specific Gravity 1.019 (1.001-1.035); Urine Urobilinogen < 2.0 EU/DL (0.2-1.0); WBC,Urine 56 /HPF (0-6)
[2019-03-09 06:24] LABS: Basophils # 0.1 10*3/uL (0.0-0.2); Basophils % 0.5 % (0.0-0.8); Eosinophils # 0.4 10*3/uL (0.0-0.87); Eosinophils % 3.7 % (0.00-10.9); Hematocrit 41.1 VOL% (35.7-47.0); Hemoglobin 12.9 GM/DL (12.0-16.0); Immature Granulocytes % 0.7 %; Immature Granulocytes Absolute 0.08 #; Lymphocytes # 2.5 10*3/uL (1.4-4.0); Lymphocytes % 23.4 % (21.3-54.2); Mean Corpuscular HGB Conc 31.4 GM/DL (32-36); Mean Corpuscular Volume 94.5 FL (87-102); Mean Platelet Volume 9.5 FL (9.6-12.0); Monocytes % 9.8 % (1.7-12.7); Neutrophils % 61.9 % (38.7-73.9); Platelet Count 308 T/CUMM (130-400); Red Blood Count 4.35 MC/CUMM (3.8-5.5); Red Cell Distribution Width 12.8 % (9.3-17.3); White Blood Count 10.7 T/CUMM (4-12)
[2019-03-09 06:31] LABS: Albumin 2.6 G/DL (3.4-5.0); Bilirubin,Total 0.7 MG/DL (0.2-1.0); Calcium 9.8 MG/DL (8.5-10.1); Total Protein 8.1 G/DL (6.4-8.3)
[2019-03-09] MEDS: LACTATED RINGERS 1,000 ML IV SCH ×4 (07:27→16:05)
[2019-03-09] MEDS: ENOXAPARIN 40 MG/0.4 ML SYRINGE SUBCUT SCH (08:42)
[2019-03-09] MEDS ORDERED: DICYCLOMINE 20 MG TABLET PO PRN (13:47)
[2019-03-09] MEDS ORDERED: HYDROCORTISONE 25 MG SUPP RECTAL PRN (13:47)
[2019-03-09] MEDS ORDERED: cloNIDine 0.1 MG TABLET PO PRN (13:47)
[2019-03-09] MEDS ORDERED: diphenhydrAMINE 25 MG/10 ML UDCUP PO PRN (13:47)
[2019-03-09] MEDS ORDERED: POLYVINYL ALCOHOL 1.4% OPH SOLN 15 ML BOTTLE BOTH EYES PRN (13:47)
[2019-03-09] MEDS: MUPIROCIN 2% OINT 22 GM TUBE TOP SCH ×2 (14:56→21:35)
[2019-03-09] MEDS: PANTOPRAZOLE 40 MG TABLET PO SCH (14:57)
[2019-03-09] MEDS: ALBUTEROL 2.5 MG/3 ML NEB RESP TX SCH ×4 (15:16→23:53)
[2019-03-09] MEDS: hydrALAZINE 25 MG TABLET PO SCH ×2 (16:27→20:34)
[2019-03-09] MEDS ORDERED: POLYVINYL ALCOHOL BOTH EYES SCH (17:00)
[2019-03-09] MEDS: PROPRANOLOL 10 MG TABLET PO SCH (20:34)
[2019-03-09] MEDS: ALPRAZolam 0.5 MG TABLET PO SCH (20:34)
[2019-03-09] MEDS ORDERED: OLANZapine 5 MG TABLET PO SCH (21:00)
[2019-03-09] MEDS ORDERED: TAMSULOSIN 0.4 MG CAPSULE PO SCH (21:00)
[2019-03-09] MEDS ORDERED: LACTULOSE 20 GM/30 ML UDCUP PO SCH (21:00)
[2019-03-10] MEDS: PIPERACILLIN/TAZOBACTAM 3,375 MG in SODIUM CHLORIDE 0.9% 100 ML IV SCH ×2 (00:06→08:34)
[2019-03-10] MEDS: ALBUTEROL 2.5 MG/3 ML NEB RESP TX SCH ×3 (04:20→11:40)
[2019-03-10] MEDS: LACTATED RINGERS 1,000 ML IV SCH (05:35)
[2019-03-10] MEDS ORDERED: FLUoxetine 20 MG CAPSULE PO SCH (08:00)
[2019-03-10] MEDS ORDERED: POLYETHYLENE GLYCOL POWDER 17 GM PACK PO SCH (08:00)
[2019-03-10] MEDS ORDERED: FLUTICASONE 50 MCG NASAL SPRAY 16 GM BOTTLE BOTH NARES SCH (08:00)
[2019-03-10] MEDS: ENOXAPARIN 40 MG/0.4 ML SYRINGE SUBCUT SCH (08:35)
[2019-03-10] MEDS: ALPRAZolam 0.5 MG TABLET PO SCH (08:36)
[2019-03-10] MEDS: MUPIROCIN 2% OINT 22 GM TUBE TOP SCH (08:38)
[2019-03-10] MEDS: hydrALAZINE 25 MG TABLET PO SCH (08:47)
[2019-03-10] MEDS: PANTOPRAZOLE 40 MG TABLET PO SCH (08:47)
[2019-03-10] MEDS: PROPRANOLOL 10 MG TABLET PO SCH (08:48)
[2019-03-10] MEDS ORDERED: POTASSIUM CHLORIDE 10 MEQ TABLET PO SCH (09:00)
[2019-03-10] MEDS ORDERED: lisinopriL 10 MG TABLET PO SCH (09:00)
[2019-03-10] MEDS ORDERED: busPIRone 5 MG TABLET PO SCH (09:00)
[2019-03-10] MEDS ORDERED: MAGNESIUM CHLORIDE 64 MG TABLET PO SCH (09:00)
[2019-03-10 11:22] VITALS: BP 111/57
[2019-03-10] MEDS ORDERED: DESITIN 4OZ/NYSTATIN 15 GRAM MIXTURE PASTE TOP SCH (14:00)
== END 2019-03-10 13:47 | DRG 395 ==
LOC: N.3E 15:23
PROVIDERS: ADMIT Surgery; ATTEND Surgery

== ENCOUNTER 2020-06-17 05:43 | Inpatient (IN) ==
[2020-06-17] MEDS ORDERED: ceFAZolin 2,000 MG in PREMIX 1 EACH IV ONE (06:00)
[2020-06-17] MEDS ORDERED: VANCOMYCIN INJ 1,000 MG in SODIUM CHLORIDE 0.9% 250 ML IV ONE (06:00)
[2020-06-17] MEDS ORDERED: BACITRACIN OINT 0.9 GM PACK TOP ONE (06:39)
[2020-06-17] MEDS ORDERED: DIAZEPAM 5 MG TABLET PO ONE (06:40)
[2020-06-17] MEDS ORDERED: GABAPENTIN 400 MG CAPSULE PO ONE (06:40)
[2020-06-17] MEDS ORDERED: ALBUTEROL 2.5 MG/3 ML NEB RESP TX ONE ×2 (06:40→10:06)
[2020-06-17] MEDS ORDERED: FAMOTIDINE 20 MG TABLET PO ONE (06:40)
[2020-06-17] MEDS ORDERED: ACETAMINOPHEN 500 MG TABLET PO ONE (06:40)
[2020-06-17] MEDS ORDERED: SCOPOLAMINE 1.5 MG PATCH TRANSDERM ONE (06:40)
[2020-06-17] MEDS ORDERED: ROPIVACAINE 0.5% 30 ML VIAL ONE (06:54)
[2020-06-17] MEDS ORDERED: LIDOCAINE 1% 5 ML VIAL ONE (06:54)
[2020-06-17] MEDS ORDERED: DEXAMETHASONE 4 MG/1 ML VIAL ONE (06:54)
[2020-06-17] MEDS ORDERED: LACTATED RINGERS 1,000 ML IV SCH (07:00)
[2020-06-17] MEDS ORDERED: LIDOCAINE 2% 5 ML VIAL ONE (07:09)
[2020-06-17] MEDS ORDERED: ONDANSETRON 4 MG/2 ML VIAL ONE (07:09)
[2020-06-17] MEDS ORDERED: SUCCINYLCHOLINE 200 MG/10 ML VIAL ONE (07:09)
[2020-06-17] MEDS ORDERED: ETOMIDATE 40 MG/20 ML VIAL IV ONE (07:09)
[2020-06-17] MEDS ORDERED: ROCURONIUM 50 MG/5 ML VIAL IV ONE (07:09)
[2020-06-17] MEDS ORDERED: PHENYLEPHRINE 1 MG/10 ML SYRINGE IV ONE (07:09)
[2020-06-17] MEDS ORDERED: propofoL 200 MG/20 ML VIAL IV ONE (07:09)
[2020-06-17] MEDS ORDERED: MIDAZOLAM 2 MG/2 ML VIAL ONE (07:10)
[2020-06-17] MEDS ORDERED: fentaNYL 250 MCG/5 ML VIAL ONE (07:10)
[2020-06-17] MEDS ORDERED: TRANEXAMIC ACID 1,000 MG/10 ML VIAL ONE (09:19)
[2020-06-17] MEDS ORDERED: cloNIDine 0.1 MG TABLET PO PRN (09:41)
[2020-06-17] MEDS ORDERED: HYDROCORTISONE 25 MG SUPP RECTAL PRN (09:41)
[2020-06-17] MEDS ORDERED: DIPHENOXYLATE/ATROPINE 2.5-0.025 MG TABLET PO PRN (09:41)
[2020-06-17] MEDS ORDERED: DICYCLOMINE 20 MG TABLET PO PRN (09:41)
[2020-06-17] MEDS ORDERED: MORPHINE 4 MG/1 ML VIAL IV PRN (09:43)
[2020-06-17] MEDS ORDERED: LACTATED RINGERS 1,000 ML IV ONE (09:43)
[2020-06-17] MEDS ORDERED: diphenhydrAMINE CAP 25 MG CAPSULE PO PRN (09:43)
[2020-06-17] MEDS ORDERED: fentaNYL 100 MCG/2 ML VIAL ONE (09:48)
[2020-06-17] MEDS ORDERED: LABETALOL 20 MG/4 ML SYRINGE IV ONE (10:05)
[2020-06-17] MEDS ORDERED: ONDANSETRON 4 MG/2 ML VIAL IV PRN (10:35)
[2020-06-17] MEDS ORDERED: HYDROmorphone 2 MG/1 ML VIAL ONE (10:35)
[2020-06-17] MEDS: HYDROmorphone 2 MG/1 ML VIAL IV PRN ×3 (10:39→10:51)
[2020-06-17] MEDS: ONDANSETRON 4 MG/2 ML VIAL IV PRN ×2 (10:39→16:58)
[2020-06-17] MEDS: LACTATED RINGERS 1,000 ML IV SCH (14:08)
[2020-06-17] MEDS: POLYVINYL ALCOHOL 1.4% OPH SOLN 15 ML BOTTLE BOTH EYES SCH ×3 (14:09→21:28)
[2020-06-17] MEDS: ceFAZolin 2,000 MG in PREMIX 1 EACH IV SCH ×2 (14:21→22:24)
[2020-06-17] MEDS: CALCIUM (CARBONATE)/VITAMIN D 500 MG-200 UNIT TABLET PO SCH (16:57)
[2020-06-17] MEDS: FUROSEMIDE 40 MG TABLET PO SCH (16:58)
[2020-06-17] MEDS: MORPHINE 4 MG/1 ML VIAL IV PRN (16:58)
[2020-06-17] MEDS: LACTULOSE 20 GM/30 ML UDCUP PO SCH (21:26)
[2020-06-17] MEDS: DOCUSATE SODIUM 100 MG CAPSULE PO SCH (21:27)
[2020-06-17] MEDS: ATORVASTATIN 20 MG TABLET PO SCH (21:27)
[2020-06-17] MEDS: PANTOPRAZOLE 40 MG TABLET PO SCH (21:27)
[2020-06-17] MEDS: PROPRANOLOL 10 MG TABLET PO SCH (21:27)
[2020-06-17] MEDS: OLANZapine 5 MG TABLET PO SCH (21:27)
[2020-06-17] MEDS: TAMSULOSIN 0.4 MG CAPSULE PO SCH (21:28)
[2020-06-17] MEDS: ALPRAZolam 0.5 MG TABLET PO SCH (21:28)
[2020-06-18] MEDS: LACTATED RINGERS 1,000 ML IV SCH ×2 (03:21→10:07)
[2020-06-18] MEDS: MORPHINE 4 MG/1 ML VIAL IV PRN ×3 (03:45→14:01)
[2020-06-18] MEDS: FONDAPARINUX 2.5 MG/0.5 ML SYRINGE SUBCUT SCH (04:34)
[2020-06-18 05:37] LABS: Basophils % 0.1 % (0.0-0.8); Hematocrit 38.3 VOL% (35.7-47.0); Immature Granulocytes % 0.4 %; Immature Granulocytes Absolute 0.04 #; Lymphocytes # 2.3 10*3/uL (1.4-4.0); Lymphocytes % 24.5 % (21.3-54.2); Mean Corpuscular HGB Conc 31.3 GM/DL (32-36); Mean Corpuscular Volume 97.7 FL (87-102); Mean Platelet Volume 10.6 FL (9.6-12.0); Monocytes % 12.2 % (1.7-12.7); Neutrophils % 62.8 % (38.7-73.9); Platelet Count 169 T/CUMM (130-400); Red Blood Count 3.92 MC/CUMM (3.8-5.5); Red Cell Distribution Width 12.6 % (9.3-17.3); White Blood Count 9.3 T/CUMM (4-12)
[2020-06-18] MEDS: PANTOPRAZOLE 40 MG TABLET PO SCH ×2 (06:01→20:54)
[2020-06-18 06:13] LABS: Osmolality,Calculated 280.5 MOS/KG (273-304); Potassium 3.8 MMOL/L (3.5-5.1)
[2020-06-18] MEDS: MULTIVITAMIN (INTRINSIC) CAPSULE PO SCH (08:35)
[2020-06-18] MEDS: FLUoxetine 20 MG CAPSULE PO SCH (08:35)
[2020-06-18] MEDS: DOCUSATE SODIUM 100 MG CAPSULE PO SCH ×2 (08:35→20:54)
[2020-06-18] MEDS: PROPRANOLOL 10 MG TABLET PO SCH ×2 (08:36→20:54)
[2020-06-18] MEDS: FUROSEMIDE 40 MG TABLET PO SCH ×2 (08:36→17:49)
[2020-06-18] MEDS: OLANZapine 5 MG TABLET PO SCH ×2 (08:36→20:54)
[2020-06-18] MEDS: hydrALAZINE 25 MG TABLET PO SCH (08:36)
[2020-06-18] MEDS: CALCIUM (CARBONATE)/VITAMIN D 500 MG-200 UNIT TABLET PO SCH ×2 (08:36→17:50)
[2020-06-18] MEDS: busPIRone 5 MG TABLET PO SCH (08:36)
[2020-06-18] MEDS: ALPRAZolam 0.5 MG TABLET PO SCH ×2 (08:37→20:54)
[2020-06-18] MEDS: POLYVINYL ALCOHOL 1.4% OPH SOLN 15 ML BOTTLE BOTH EYES SCH ×4 (08:37→21:57)
[2020-06-18] MEDS: FLUTICASONE 50 MCG NASAL SPRAY 16 GM BOTTLE BOTH NARES SCH (08:37)
[2020-06-18] MEDS: lisinopriL 10 MG TABLET PO SCH (09:41)
[2020-06-18] MEDS: LACTULOSE 20 GM/30 ML UDCUP PO SCH (20:53)
[2020-06-18] MEDS: ATORVASTATIN 20 MG TABLET PO SCH (20:54)
[2020-06-18] MEDS: TAMSULOSIN 0.4 MG CAPSULE PO SCH (20:54)
[2020-06-19 05:01] LABS: Basophils % 0.3 % (0.0-0.8); Eosinophils % 0.1 % (0.00-10.9); Hematocrit 34.1 VOL% (35.7-47.0); Hemoglobin 11.2 GM/DL (12.0-16.0); Immature Granulocytes % 0.5 %; Immature Granulocytes Absolute 0.06 #; Lymphocytes # 2.2 10*3/uL (1.4-4.0); Lymphocytes % 19.6 % (21.3-54.2); Mean Corpuscular HGB Conc 32.8 GM/DL (32-36); Mean Corpuscular Volume 95.3 FL (87-102); Mean Platelet Volume 10.2 FL (9.6-12.0); Monocytes % 13.5 % (1.7-12.7); Platelet Count 140 T/CUMM (130-400); Red Blood Count 3.58 MC/CUMM (3.8-5.5); Red Cell Distribution Width 12.8 % (9.3-17.3)
[2020-06-19] MEDS: PANTOPRAZOLE 40 MG TABLET PO SCH ×2 (06:16→21:29)
[2020-06-19] MEDS: FONDAPARINUX 2.5 MG/0.5 ML SYRINGE SUBCUT SCH (06:17)
[2020-06-19] MEDS: MULTIVITAMIN (INTRINSIC) CAPSULE PO SCH (08:33)
[2020-06-19] MEDS: hydrALAZINE 25 MG TABLET PO SCH (08:33)
[2020-06-19] MEDS: FLUoxetine 20 MG CAPSULE PO SCH (08:33)
[2020-06-19] MEDS: CALCIUM (CARBONATE)/VITAMIN D 500 MG-200 UNIT TABLET PO SCH ×2 (08:33→17:53)
[2020-06-19] MEDS: ALPRAZolam 0.5 MG TABLET PO SCH ×2 (08:33→21:28)
[2020-06-19] MEDS: lisinopriL 10 MG TABLET PO SCH (08:34)
[2020-06-19] MEDS: busPIRone 5 MG TABLET PO SCH (08:34)
[2020-06-19] MEDS: OLANZapine 5 MG TABLET PO SCH ×2 (08:34→21:28)
[2020-06-19] MEDS: PROPRANOLOL 10 MG TABLET PO SCH ×2 (08:34→23:09)
[2020-06-19] MEDS: FUROSEMIDE 40 MG TABLET PO SCH ×3 (08:34→17:17)
[2020-06-19] MEDS: DOCUSATE SODIUM 100 MG CAPSULE PO SCH ×2 (08:34→21:29)
[2020-06-19] MEDS: FLUTICASONE 50 MCG NASAL SPRAY 16 GM BOTTLE BOTH NARES SCH (08:36)
[2020-06-19] MEDS: POLYVINYL ALCOHOL 1.4% OPH SOLN 15 ML BOTTLE BOTH EYES SCH ×4 (08:40→21:31)
[2020-06-19] MEDS: ATORVASTATIN 20 MG TABLET PO SCH (21:29)
[2020-06-19] MEDS: TAMSULOSIN 0.4 MG CAPSULE PO SCH (21:29)
[2020-06-19] MEDS: LACTULOSE 20 GM/30 ML UDCUP PO SCH (23:09)
[2020-06-20] MEDS: PANTOPRAZOLE 40 MG TABLET PO SCH (05:16)
[2020-06-20] MEDS: FONDAPARINUX 2.5 MG/0.5 ML SYRINGE SUBCUT SCH (05:18)
[2020-06-20 05:22] LABS: Basophils % 0.2 % (0.0-0.8); Eosinophils # 0.1 10*3/uL (0.0-0.87); Hemoglobin 10.3 GM/DL (12.0-16.0); Immature Granulocytes % 0.5 %; Immature Granulocytes Absolute 0.06 #; Lymphocytes # 2.5 10*3/uL (1.4-4.0); Lymphocytes % 21.2 % (21.3-54.2); Mean Corpuscular HGB Conc 32.2 GM/DL (32-36); Mean Corpuscular Volume 96.1 FL (87-102); Mean Platelet Volume 10.5 FL (9.6-12.0); Monocytes % 9.8 % (1.7-12.7); Neutrophils % 67.3 % (38.7-73.9); Platelet Count 138 T/CUMM (130-400); Red Blood Count 3.33 MC/CUMM (3.8-5.5); Red Cell Distribution Width 12.6 % (9.3-17.3); White Blood Count 11.6 T/CUMM (4-12)
[2020-06-20] MEDS: busPIRone 5 MG TABLET PO SCH (08:18)
[2020-06-20] MEDS: MULTIVITAMIN (INTRINSIC) CAPSULE PO SCH (08:18)
[2020-06-20] MEDS: FLUoxetine 20 MG CAPSULE PO SCH (08:18)
[2020-06-20] MEDS: hydrALAZINE 25 MG TABLET PO SCH (08:18)
[2020-06-20] MEDS: FUROSEMIDE 40 MG TABLET PO SCH (08:19)
[2020-06-20] MEDS: OLANZapine 5 MG TABLET PO SCH (08:19)
[2020-06-20] MEDS: DOCUSATE SODIUM 100 MG CAPSULE PO SCH (08:19)
[2020-06-20] MEDS: PROPRANOLOL 10 MG TABLET PO SCH (08:19)
[2020-06-20] MEDS: lisinopriL 10 MG TABLET PO SCH (08:19)
[2020-06-20] MEDS: ALPRAZolam 0.5 MG TABLET PO SCH (08:19)
[2020-06-20] MEDS: CALCIUM (CARBONATE)/VITAMIN D 500 MG-200 UNIT TABLET PO SCH (08:20)
[2020-06-20] MEDS: FLUTICASONE 50 MCG NASAL SPRAY 16 GM BOTTLE BOTH NARES SCH (08:20)
[2020-06-20] MEDS: POLYVINYL ALCOHOL 1.4% OPH SOLN 15 ML BOTTLE BOTH EYES SCH (08:20)
[2020-06-20 11:12] VITALS: BP 91/43
[2020-06-23] MEDS ORDERED: ERGOCALCIFEROL 50,000 UNIT CAPSULE PO SCH (08:00)
== END 2020-06-20 13:25 | DRG 470 ==
LOC: N.OR 05:43 → N.SDSINP 05:45 → N.3E 09:44
PROVIDERS: ADMIT Orthopaedic Surgery; ATTEND Orthopaedic Surgery